=== PATIENT | male | born 1965 ===

== ENCOUNTER 2020-08-30 13:30 | Outpatient (CLI) | payer OTHER | END 2020-08-30 13:31 | disposition home or self-care (01) | LOC: PPH VACUNA 13:30 | DX: Z23 Encounter for immunization (principal) ==

== ENCOUNTER 2024-07-21 12:18 | Outpatient (CLI) | payer OTHER | END 2024-07-21 12:26 | disposition home or self-care (01) | LOC: RAD 12:18 | PROVIDERS: ATTEND Internal Medicine Pulmonary Disease | DX: J45.901 Unspecified asthma with (acute) exacerbation (principal) ==